=== PATIENT | male | born 1995 | race Caucasian/White ===

== ENCOUNTER 2018-02-07 01:14 | Emergency (ER) | payer OTHER ==
[~2018-02-07] VITALS: Ht 185.4 cm; Wt 97.0 kg
[2018-02-07] MEDS ORDERED: LORAZEPAM 2 MG/ML 1 ML VIAL IM STA ×2 (01:22→02:14)
[2018-02-07] MEDS ORDERED: HALOPERIDOL LACTATE 5 MG/ML 1 ML VIAL IM STA (01:22)
[2018-02-07] MEDS ORDERED: LORAZEPAM 2 MG/ML 1 ML VIAL ONE (01:22)
[2018-02-07] MEDS ORDERED: HALOPERIDOL LACTATE 5 MG/ML 1 ML VIAL ONE (01:22)
[2018-02-07 01:31] VITALS: TEMP 36.6; Ht 185.4 cm; Wt 97.0 kg
[2018-02-07 01:51] LABS: CALCIUM 8.7 mg/dl (8.5-10.1); CREATININE 1.43 mg/dl (0.60-1.40); POTASSIUM 3.5 mmol/L (3.5-5.1)
--- NOTE | 2018-02-07 06:14 | EMERGENCY ROOM VISIT NOTE ---
History First contact with patient: 01:15 Chief Complaint: ALCOHOL OVERDOSE Stated Complaint: ALCOHOL OVERDOSE/FALL Nursing Triage Summary: Pt presents s for evaluation of etoh overdose. EMS found pt on ground surrounded by friends. Friends unable to provide hx. Abraisions to b/l knees and elbows. Pt combative and with police upon arrival. History of Present Illness The patient is a 22 year old male who presents to the Emergency Room via EMS for evaluation of alcohol overdose. History is limited secondary to intoxicated state. EMS reports that the patient was found on the ground, surrounded by friends. He has several abrasions to his back but they are unable to provide any history as to why this happened. Patient refused to answer any further questions. Review of Systems Review of systems limited due to patient's intoxicated state. Past Medical/Surgical History Medical Problems: (1) No significant active problems Social History Smoking Status: Unknown if Ever Smoked Occupation Status: [employer] Current/Historical Medications No Active Prescriptions or Reported Meds Physical Exam Vital Signs Date Time Temp Pulse Resp B/P (MAP) Pulse Ox O2 Delivery O2 Flow Rate FiO2 02/07/18 08:34 99 16 100/76 100 Room Air 02/07/18 07:35 85 14 130/55 97 02/07/18 06:06 122/53 02/07/18 06:05 91 16 94 Room Air 02/07/18 05:36 70 02/07/18 05:35 74 14 93 Room Air 02/07/18 05:05 77 15 95 Room Air 02/07/18 05:00 137/116 02/07/18 04:51 75 12 94 Room Air 02/07/18 04:30 122/48 02/07/18 04:21 90 18 97 Room Air 02/07/18 04:00 130/56 02/07/18 03:51 67 92 Room Air 02/07/18 03:46 128/54 02/07/18 03:30 75 94 Room Air 02/07/18 03:00 84 17 94 Room Air 02/07/18 02:45 82 18 125/55 94 Room Air 02/07/18 01:31 Room Air 02/07/18 01:31 121 02/07/18 01:31 36.6 121 18 140/69 93 Room Air Physical Exam VITALS: Vitals are noted on the nurse's note and reviewed by myself. Vital signs stable. GENERAL: This is a 22-year-old male, held in prone position by security, appears to be visibly intoxicated, smells of ETOH. SKIN: There are multiple superficial abrasions to the back. HEAD: Normocephalic atraumatic. EARS: External auditory canals clear. No hemotympanum. EYES: Pupils equal round and reactive to light and accommodation. NOSE: No deformities noted. HEART: Regular rate and rhythm without murmurs gallops or rubs. LUNGS: Clear to auscultation bilaterally without wheezes, rales or rhonchi. NEURO/PSYCH: Patient is uncooperative, fighting with security and screaming repeatedly. Medical Decision & Procedures Laboratory Results 02/07/18 01:21 Test 02/07/18 01:21 Anion Gap 12.0 mmol/L (3-11) Est Creatinine Clear Calc Drug Dose 100.2 ml/min Estimated GFR () 80.6 Estimated GFR (Non- 69.5 BUN/Creatinine Ratio 7.9 (10-20) Calcium Level 8.7 mg/dl (8.5-10.1) Ethyl Alcohol mg/dL 263.0 mg/dl (0-3) Medications Administered Medications (Trade) Dose Ordered Sig/Janna Route Start Time Stop Time Status Last Admin Dose Admin Lorazepam (Ativan Inj) 2 mg STK-MED ONCE .ROUTE 02/07/18 01:22 02/07/18 01:23 DC 02/07/18 01:35 2 MG Haloperidol Lactate (Haldol Inj) 10 mg STK-MED ONCE .ROUTE 02/07/18 01:22 02/07/18 01:23 DC 02/07/18 01:35 10 MG ED Course The patient was evaluated as above. The patient was persistently resisting staff and became violent. Due to concerns for both the patient's safety and safety of our staff, I did feel it was necessary to both chemically and physically restrain the patient. He was given 10 mg 10 mg Haldol IM and 2 mg Ativan IM. On reassessment, the patient is now sleeping. On reassessment in the morning, the patient is still sleeping. Care of the patient will be signed out to Isabelle Menendez PA-C at change of shift. Medical Decision Differential diagnosis includes alcohol intoxication, drug use, infection, hypoglycemia, head trauma, among others. The patient is a 22-year-old male who presents today for evaluation of probable alcohol intoxication. Labs revealed an alcohol of 263. The patient displayed violent, self-destructive behavior and became a danger to himself and staff members. For this reason, he did receive 10 mg of Haldol and 2 mg Ativan. The patient was monitored closely throughout the night. On reassessment in the morning he was still sleeping. He did have some abrasions to his back but there is no evidence of significant trauma. As I was not able to fully evaluate the patient, care of the patient was signed out to get Isabelle Menendez PA-C at change of shift pending reevaluation. Medication Reconcilliation Current Medication List: was personally reviewed by me Blood Pressure Screening Patient's blood pressure: Normal blood pressure Impression Primary Impression: Alcoholic intoxication Critical Care I have personally spent greater than 35 minutes of critical care time in the direct management of this patient. This includes bedside care, interpretation of diagnostic studies, and testing, discussion with consultants, patient, and family members, and other required patient management activities. This 35 minutes is in excess of all separately billable procedures. Departure Information Prescriptions No Active Prescriptions or Reported Meds Referrals No Doctor, Assigned (PCP) Patient Instructions My [facility] Additional Instructions You were evaluated in emergency department for intoxication. This is a sign of Alcohol Abuse and should not be taken lightly. You had a blood alcohol level that was significantly elevated. Over the next 24 hours keep well hydrated and eat light meals. Don't drink any more alcohol. This is important. Please discuss this visit with your Primary Care Provider, [facility] and/or your loved ones. Unless an exceptional circumstance, the Hospital DOES NOT contact anyone during your visit, nor is your Protected Medical Information released to anyone without your approval/request. This means we do not contact your Parents, the Police, [facility], etc. However, you will likely receive a bill from the Hospital and/or your Insurance company, which will usually be sent to the Primary Policy [place] (often one's Parents) If your incident was on campus, or if the Police were involved, they will often contact the University to make them aware of what happened. Often this will result in you being required to take Alcohol Education classes (ie BASICS class) . Please see information given to you at discharge regarding contact for this. If the Police were involved you will likely be cited for public intoxication. Please contact either [facility] Police or the [place] Police for further information. Call 911 or return to Emergency Department if you develop: Passing out, difficulty breathing, many episodes of vomiting, blood in vomit or stool, abdominal pain, fevers, or other severe symptoms. We are always here to help if you feel you need further evaluation or treatment. Problem Qualifiers Primary Impression: Alcoholic intoxication Complication of substance-induced condition: uncomplicated Qualified Codes: F10.920 - Alcohol use, unspecified with intoxication, uncomplicated
[2018-02-07 08:34] VITALS: BP 100/76; PULSE 99; O2SAT 100
--- NOTE | 2018-02-07 08:38 | EMERGENCY ROOM VISIT NOTE ---
ED Visit Note ED NOTE: Care of this patient was signed out to me from Jenifer Campoverde PA-C at change of shift. Briefly, patient is a 22-year-old male brought to the emergency department by ambulance for an alcohol overdose. He was uncooperative with staff, and was administered Ativan and Haldol. He was observed in the emergency department for over 7 hours until he reached a more clinically sober state. He was reassessed by myself at 0 830. At this time, he was awake and able to converse without difficulty. He reports that he was at a [employer] last night, reports that he drank alcohol only. He has no recollection of the events leading up to his arrival here in the emergency department. He does not have any complaints. Patient was reexamined, noted multiple superficial abrasions on the patient's back and arms. Ribs are nontender to palpation and chest was clear to auscultation. He was given oral fluids which he tolerated. He is ambulatory in the room without difficulty. He will be discharged into the care of sober friends.
== END 2018-02-07 08:51 | disposition home or self-care (01) ==
LOC: C.EDC 01:14 → C.EDB 08:51
DX: F10.129 Alcohol abuse with intoxication, unspecified (principal); Z78.1 Physical restraint status